=== PATIENT | male | born 1980 | race American Indian/Alaskan Native ===

== ENCOUNTER 2021-01-11 09:47 | Emergency (ER) | payer BC ==
[2021-01-11 11:32] LABS: Basophils # (Auto) 0.1 K/mm3 (0.0-0.1); Basophils % (Auto) 1.8 % (0.0-1.8); Eosinophils % (Auto) 0.3 % (0.0-4.3); Hematocrit 40.4 % (35.5-45.6); Hemoglobin 13.9 gm/dl (11.8-15.2); Lymphocytes # (Auto) 1.6 K/mm3 (1.2-5.4); Lymphocytes % (Auto) 39.3 % (13.4-35.0); Mean Corpuscular HGB Conc 34 % (32-34); Mean Corpuscular Volume 89 fl (84-94); Monocytes # (Auto) 0.4 K/mm3 (0.0-0.8); Monocytes % (Auto) 9.9 % (0.0-7.3); Platelet Count 163 K/mm3 (140-440); Red Blood Count 4.54 M/mm3 (3.65-5.03); Red Cell Distribution Width 16.2 % (13.2-15.2)
[2021-01-11 11:39] LABS: BUN/Creatinine Ratio 10; Blood Urea Nitrogen 9 mg/dL (9-20); Hemolysis Index 7
[2021-01-11 12:22] LABS: Amphetamine Screen,Urine Negative; Benzodiazepines Screen,Urine Negative; Cannabinoid Screen,Urine Negative; Cocaine Screen,Urine Negative; Methadone Screen,Urine Negative; Opiate Screen,Urine Negative
[2021-01-11 12:27] LABS: Bilirubin,Urine NEG (Negative); Blood,Urine SM (Negative); Color,Urine Yellow (Yellow); Mucus,Urine FEW /HPF; RBC,Urine < 1.0 /HPF (0.0-6.0); Urobilinogen,Urine < 2.0 mg/dL (<2.0); WBC,Urine < 1.0 /HPF (0.0-6.0)
[2021-01-11 12:50] LABS: Protein,Urine >500 mg/dL (Negative)
--- NOTE | 2021-01-11 19:01 | Event Note ---
ED Screening Note Date of service: 01/11/21 Time: 18:57 ED Screening Note: 40-year-old male patient with history of hypertension and diabetes presents to the emergency department with complaints of left flank and left lower quadrant abdominal pain with associated nausea and vomiting for 3 days. No known history of kidney stones. Patient has been out of his insulin for approximately 3 days. He also has a history of bipolar disorder and depression however he has been out of his medication for several months. He attempted to go to [place] today but was sent to the emergency department for "medical clearance." Denies suicidal and homicidal ideations. Hypertensive in triage. Blood alcohol level 0.27. General: Awake, appropriately interactive, no acute distress. Neck: Supple. Full range of motion intact. Cardiovascular: Normal peripheral perfusion. Pulmonary: No respiratory distress. Patient is speaking normally without use of accessory muscles. Abdomen: Soft, non-distended. Left flank and left lower quadrant tenderness, no rigidity, no voluntary guarding. Skin: No apparent rashes or lesions. Neurological: No facial asymmetry. Speech is clear. Follows commands. Patient is alert and oriented. Musculoskeletal: Left CVA tenderness. Psych: Cooperative. Appropriate mood and affect. CT abdomen/pelvis ordered based on the above physical exam findings. Contrast withheld due to reported shellfish allergy. I have greeted and performed a focused rapid initial assessment of this patient. A comprehensive ED assessment and evaluation of the patient, analysis of all test results, and completion of the medical decision-making process will be conducted by additional ED providers. This initial assessment/diagnostic orders/clinical plan/treatment(s) is/are subject to change based on patients health status, clinical progression and re-assessment. Further treatment and workup at subsequent clinical provider's discretion. Patient/guardian urged not to elope from the ED as their condition may be serious if not clinically assessed and managed.
--- NOTE | 2021-01-11 19:40 | Cat Scan Report ---
CT ABDOMEN AND PELVIS WITHOUT CONTRAST HISTORY: LLQ/left flank/left CVA tenderness x3days. COMPARISON: None. TECHNIQUE: CT images of the abdomen and pelvis were obtained without administration of intravenous co ntrast. All CT scans at this location are performed using CT dose reduction for ALARA by means of au tomated exposure control. FINDINGS: Lungs/bones: Lung bases are clear Abdomen/pelvis: Diffuse fatty infiltration the liver. The spleen, adrenal glands, pancreas, gallblad hudson and upper GI tract appear normal. There is suggested some inflammation of the proximal sigmoid co bert with wall thickening in the left colon. Urinary bladder is not well distended. Appendix appears n ormal. No free fluid or abscess collection. No acute bone findings are seen. IMPRESSION: 1. Fatty infiltration liver. 2. Right kidney is not visualized which could represent prior nephrectomy or congenital absence. 3. Thickening of the left colon. There is mild inflammation surrounding the proximal sigmoid colon wh ich could represent some mild diverticulitis. No fluid collection or abscess. Signer Name: Braeden Ballesteros MD Signed: 01/11/2021 7:36 PM Workstation Name: [id number]
[2021-01-12] MEDS ORDERED: SODIUM CHLORIDE 0.9% 1000 ML 1,000 ML IV ONE (00:39)
[2021-01-12] MEDS ORDERED: THIAMINE 100 MG, FOLIC ACID 1 MG, MULTIPLE VITAMIN INJ, ADULT 10 ML in SODIUM CHLORIDE ... IV ONE (00:39)
--- NOTE | 2021-01-12 00:42 | Emergency Department Report ---
ED Abdominal Pain HPI - General Chief Complaint: Abdominal Pain Stated Complaint: PSYCH /MENTAL HEALTH PUI?: No Time Seen by Provider: 01/12/21 00:38 Source: patient Mode of arrival: Ambulatory Limitations: No Limitations - History of Present Illness Initial Comments: Patient is a 40-year-old male who presents emergency room for abdominal pain. Patient states his abdominal pain started 2 days ago. Patient dates abdominal pain is worsening. Patient states the abdominal pain is in the left lower quadrant and the left flank region. Patient states the pain is a 10 out of 10. Patient states the pain is better with rest. Patient dates the pain is worse with movement and palpation. Patient denies fever or chills. Patient denies nausea vomiting. Patient denies dysuria. Patient also presents for medical clearance. Patient states she has been accepted to [facility] for voluntary status for bipolar and depression. Patient denies suicidal homicidal ideation. Patient denies hallucinations. Patient states been off his psychiatry meds for months. Patient states he just needs to be cleared for this abdominal pain and then he is excepted to go back to [place]. Patient denies recent travel. Patient denies recent international travel. Patient denies exposure to the novel coronavirus. Patient denies sick contacts. Patient denies fever and chills. Patient denies cough. Patient denies diarrhea. Patient denies coming in contact with anybody with symptoms of the novel coronavirus. Complaint: abdominal pain -: Sudden Location: LLQ, L flank Radiation: none Migration to: no migration Severity: severe Severity scale (0 -10): 10 Quality: stabbing Consistency: constant Improves With: rest Worsens With: movement Associated Symptoms: denies: nausea, vomiting, diarrhea, fever, chills, constipation, dysuria, hematemesis, hematochezia, melena, hematuria, anorexia, syncope - Related Data Previous Rx's Medication Instructions Recorded Last Taken Type Ciprofloxacin HCl 500 mg PO BID 10 Days #20 tablet 01/12/21 Unknown Rx Ondansetron [Zofran Odt] 4 mg PO Q6HR PRN #15 tab.rapdis 01/12/21 Unknown Rx metroNIDAZOLE [Flagyl] 500 mg PO Q12HR 10 Days #20 tab 01/12/21 Unknown Rx Allergies Allergy/AdvReac Type Severity Reaction Status Date / Time shellfish derived Allergy Swelling Verified 01/11/21 10:13 ED Review of Systems ROS: Stated complaint: PSYCH /MENTAL HEALTH Other details as noted in HPI Constitutional: denies: chills, fever Eyes: denies: eye pain, eye discharge, vision change ENT: denies: ear pain, throat pain Respiratory: denies: cough, shortness of breath, wheezing Cardiovascular: denies: chest pain, palpitations Endocrine: no symptoms reported Gastrointestinal: as per HPI, abdominal pain. denies: nausea, diarrhea Genitourinary: denies: urgency, dysuria Musculoskeletal: denies: back pain, joint swelling, arthralgia Skin: denies: rash, lesions Neurological: denies: headache, weakness, paresthesias Psychiatric: as per HPI, depression. denies: anxiety Hematological/Lymphatic: denies: easy bleeding, easy bruising ED Past Medical Hx - Past Medical History Previous Medical History?: Yes Hx Psychiatric Treatment: Yes (BIPOLAR DEPRESSION) - Surgical History Past Surgical History?: Yes Additional Surgical History: FINGER - Family History Family history: no significant - Social History Smoking Status: Never Smoker Substance Use Type: Alcohol - Medications Home Medications: Home Medications Medication Instructions Recorded Confirmed Last Taken Type Ciprofloxacin HCl 500 mg PO BID 10 Days #20 tablet 01/12/21 Unknown Rx Ondansetron [Zofran Odt] 4 mg PO Q6HR PRN #15 tab.rapdis 01/12/21 Unknown Rx metroNIDAZOLE [Flagyl] 500 mg PO Q12HR 10 Days #20 tab 01/12/21 Unknown Rx ED Physical Exam - General Limitations: No Limitations General appearance: alert, in no apparent distress - Head Head exam: Present: atraumatic, normocephalic - Eye Eye exam: Present: normal appearance - ENT ENT exam: Present: mucous membranes moist - Neck Neck exam: Present: normal inspection - Respiratory Respiratory exam: Present: normal lung sounds bilaterally. Absent: respiratory distress - Cardiovascular Cardiovascular Exam: Present: regular rate, normal rhythm. Absent: systolic murmur, diastolic murmur, rubs, gallop - GI/Abdominal GI/Abdominal exam: Present: soft, normal bowel sounds - Rectal Rectal exam: Present: deferred - Extremities Exam Extremities exam: Present: normal inspection - Back Exam Back exam: Present: normal inspection - Neurological Exam Neurological exam: Present: alert, oriented X3 - Psychiatric Psychiatric exam: Present: normal affect, normal mood - Skin Skin exam: Present: warm, dry, intact, normal color. Absent: rash ED Course Vital Signs 01/11/21 01/12/21 01/12/21 10:15 00:43 02:00 Temperature 98.6 F 98.4 F Pulse Rate 95 H 90 Respiratory 20 16 Rate Blood Pressure 171/113 155/97 Blood Pressure 155/97 [Left] O2 Sat by Pulse 98 98 97 Oximetry 01/12/21 04:26 Temperature 98.3 F Pulse Rate 99 H Respiratory 19 Rate Blood Pressure Blood Pressure 143/91 [Left] O2 Sat by Pulse 95 Oximetry - Reevaluation(s) Reevaluation #1: Patient is complaining of nausea vomiting. Patient was given Zofran. 01/12/21 02:21 Reevaluation #2: Patient states he is feeling much better. 01/12/21 03:01 Reevaluation #3: Patient has a home over [place]. Patient is medically cleared. Patient states he is feeling much better. I discussed all results and clinical findings with patient. I discussed plan of care with patient. Patient agrees with plan of care. Patient is stable for discharge. Patient will be discharged home. Patient given discharge instructions. Patient voiced understanding of discharge instructions. 01/12/21 05:34 ED Medical Decision Making - Lab Data Result diagrams: 01/11/21 10:30 01/11/21 10:30 - Radiology Data Radiology results: report reviewed CT ABDOMEN AND PELVIS WITHOUT CONTRAST HISTORY: LLQ/left flank/left CVA tenderness x3days. COMPARISON: None. TECHNIQUE: CT images of the abdomen and pelvis were obtained without administration of intravenous contrast. All CT scans at this location are performed using CT dose reduction for ALARA by means of automated exposure control. FINDINGS: Lungs/bones: Lung bases are clear Abdomen/pelvis: Diffuse fatty infiltration the liver. The spleen, adrenal glands, pancreas, gallbladder and upper GI tract appear normal. There is suggested some inflam mation of the proximal sigmoid colon with wall thickening in the left colon. Urinary bladder is not well distended. Appendix appears normal. No free fluid or abscess collection. No acute bone findings are seen. IMPRESSION: 1. Fatty infiltration liver. 2. Right kidney is not visualized which could represent prior nephrectomy or congenital absence. 3. Thickening of the left colon. There is mild inflammation surrounding the proximal sigmoid colon which could represent some mild diverticulitis. No fluid collection or abscess. CT ABDOMEN AND PELVIS WITH CONTRAST INDICATION / CLINICAL INFORMATION: Left flank and left lower quadrant pain. TECHNIQUE: Axial CT images were obtained through the abdomen and pelvis after 100 cc Omnipaque [address] scans at this location are performed using CT dose reduction for [employer] by means of automated exposure control. COMPARISON: CT abdomen and pelvis without contrast from 01/11/2021 FINDINGS: LOWER CHEST: No significant abnormality. LIVER: There is generalized basis without other significant abnormalities. GALLBLADDER: No significant abnormality. BILE DUCTS: No significant abnormality. PANCREAS: No significant abnormality. SPLEEN: No significant abnormality. ADRENALS: No significant abnormality. RIGHT KIDNEY / URETER: The right kidney is absent. No significant abnormality along the right renal bed. LEFT KIDNEY / URETER: No significant abnormality. STOMACH / SMALL BOWEL: No significant abnormality. COLON: The majority of the colon is mildly thickened with mild pericolonic inflammation including along the proximal/mid sigmoid colon as noted previously. Scattered diverticula are present along the sigmoid/descending colon. No other significant abnormality. APPENDIX: No significant abnormality. PERITONEUM: No free fluid. No free air. No fluid collection. LYMPH NODES: No significant adenopathy. AORTA / ARTERIES: No significant abnormality. IVC / VEINS: No significant abnormality. URINARY BLADDER: No significant abnormality. REPRODUCTIVE ORGANS: No significant abnormality. ADDITIONAL FINDINGS: None. SKELETAL SYSTEM: No significant abnormality. IMPRESSION: 1. Uncomplicated acute mild colitis involving the majority of the colon. 2. No other acute findings. - Medical Decision Making Patient is a 40-year-old male presents emergency room for medical clearance and abdominal pain. Patient is medical clearance to go to [place]. 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 Patient complained of left lower quadrant abdominal pain. Patient had a CT scan which shows diverticulitis. CT did not show abscess. Patient had normal lab except for elevated blood alcohol level. Patient was given fluids and banana bag. Patient was monitored to clinical and legal sobriety. Patient is medically cleared for a psychiatric admission. Patient will be treated with oral antibiotics for his diverticulitis.. Patient was given IV fluids and IV antibiotics while in ER. Patient then had vomiting and the patient given Zofran and responded well. Patient states he felt better just prior to discharge. Patient require further emergency medical service. Patient not require inpatient services. Patient stable for discharge. [facility] is going to pick the patient up in take him over to their facility. Patient is medically cleared for psychiatric admission. - Differential Diagnosis Medical clearance, abdominal pain, diverticulitis, kidney stone, UTI Critical care attestation.: If time is entered above; I have spent that time in minutes in the direct care of this critically ill patient, excluding procedure time. ED Disposition Clinical Impression: Diverticulitis, Colitis, Medical clearance for psychiatric admission Abdominal pain Qualifiers: Abdominal location: left lower quadrant Qualified Code(s): R10.32 - Left lower quadrant pain Nausea & vomiting Qualifiers: Vomiting type: unspecified Vomiting Intractability: non-intractable Qualified Code(s): R11.2 - Nausea with vomiting, unspecified Acute alcohol intoxication Qualifiers: Complication of substance-induced condition: uncomplicated Qualified Code(s): F10.920 - Alcohol use, unspecified with intoxication, uncomplicated Disposition: [id number] PSY HOSP/PSY UNIT Is pt being admited?: No Does the pt Need Aspirin: No Condition: Stable Instructions: Nausea and Vomiting, Adult, Abdominal Pain, Adult, [id number], Colitis Additional Instructions: Patient to be discharged from the ER and go directly to [facility]. Patient is medically cleared. Patient to follow-up with primary care in 2 to 3 days. Patient to follow-up with gastroenterology in 2 to 3 days. Patient to rest. Patient to increase water. Patient to eat a brat diet. Patient to take Tylenol or ibuprofen as needed for pain. Patient to take meds as directed. Patient to return to the ER if condition worsens, changes or new symptoms arise. Prescriptions: Ciprofloxacin HCl 500 mg PO BID 10 Days #20 tablet metroNIDAZOLE [Flagyl] 500 mg PO Q12HR 10 Days #20 tab Ondansetron [Zofran Odt] 4 mg PO Q6HR PRN #15 tab.rapdis PRN Reason: Nausea And Vomiting Referrals: PRIMARY CARE, [Primary Care Provider] - 2-3 Days LUCAS SHEFFIELD MD [Staff Physician] - 2-3 Days Time of Disposition: 05:38
--- NOTE | 2021-01-12 01:18 | Cat Scan Report ---
CT ABDOMEN AND PELVIS WITH CONTRAST INDICATION / CLINICAL INFORMATION: Left flank and left lower quadrant pain. TECHNIQUE: Axial CT images were obtained through the abdomen and pelvis after 100 cc Omnipaque [address] scans at this location are performed using CT dose reduction for ALARA by means of automated exposure control. COMPARISON: CT abdomen and pelvis without contrast from 01/11/2021 FINDINGS: LOWER CHEST: No significant abnormality. LIVER: There is generalized basis without other significant abnormalities. GALLBLADDER: No significant abnormality. BILE DUCTS: No significant abnormality. PANCREAS: No significant abnormality. SPLEEN: No significant abnormality. ADRENALS: No significant abnormality. RIGHT KIDNEY / URETER: The right kidney is absent. No significant abnormality along the right renal b ed. LEFT KIDNEY / URETER: No significant abnormality. STOMACH / SMALL BOWEL: No significant abnormality. COLON: The majority of the colon is mildly thickened with mild pericolonic inflammation including cecile ng the proximal/mid sigmoid colon as noted previously. Scattered diverticula are present along the si gmoid/descending colon. No other significant abnormality. APPENDIX: No significant abnormality. PERITONEUM: No free fluid. No free air. No fluid collection. LYMPH NODES: No significant adenopathy. AORTA / ARTERIES: No significant abnormality. IVC / VEINS: No significant abnormality. URINARY BLADDER: No significant abnormality. REPRODUCTIVE ORGANS: No significant abnormality. ADDITIONAL FINDINGS: None. SKELETAL SYSTEM: No significant abnormality. IMPRESSION: 1. Uncomplicated acute mild colitis involving the majority of the colon. 2. No other acute findings. Signer Name: John Mclaughlin MD Signed: 01/12/2021 1:14 AM Workstation Name: [id number]
[2021-01-12] MEDS ORDERED: PIPERACIL/TAZOBACTA 4.5/NS 100 4.5 GM/100 ML VIAL IV ONE (02:04)
[2021-01-12] MEDS ORDERED: ONDANSETRON 4 MG/2 ML INJ IV ONE (02:27)
[2021-01-12 06:20] VITALS: BP 168/88
== END 2021-01-12 10:03 ==
LOC: ED 09:47
DX: K57.92 Diverticulitis of intestine, part unspecified, without perforation or abscess without bleeding (principal); K52.9 Noninfective gastroenteritis and colitis, unspecified; R11.2 Nausea with vomiting, unspecified; R10.32 Left lower quadrant pain; F31.9 Bipolar disorder, unspecified; F10.920 Alcohol use, unspecified with intoxication, uncomplicated; Z00.8 Encounter for other general examination; Z79.899 Other long term (current) drug therapy; Z91.013 Allergy to seafood
CPT/HCPCS: 36415; 74176; 74177; 80048; 80307; 81001; 85025; 96365; 96366; 96368; 96375; 99285; J2405; J2543; J3411; J7030; Q9967; 80320; G0480